=== PATIENT | female | born 1995 | race Caucasian/White ===

== ENCOUNTER 2016-11-18 18:30 | Emergency (ER) | payer OTHER ==
[2016-11-18 18:39] VITALS: BP 129/58; PULSE 75; TEMP 98.3; BMI 27.4
[2016-11-18] MEDS ORDERED: diazePAM 5 MG TABLET PO ONE (19:01)
[2016-11-18] MEDS ORDERED: KETOROLAC TROMETHAMINE 60 MG/2 ML VIAL IM ONE (19:01)
[2016-11-18] MEDS ORDERED: KETOROLAC TROMETHAMINE 60 MG/2 ML VIAL ONE (19:03)
[2016-11-18] MEDS ORDERED: diazePAM 5 MG TABLET ONE (19:03)
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
== END 2016-11-18 20:15 | disposition home or self-care (01) ==
LOC: JERFT 18:30
PROC: 3E0233Z Introduction of Anti-inflammatory into Muscle, Percutaneous Approach (ICD-10-PCS; principal; 2016-11-18)
DX: M54.5 Low back pain (principal); V49.49XA Driver injured in collision with other motor vehicles in traffic accident, initial encounter; Y92.414 Local residential or business street as the place of occurrence of the external cause; Y93.89 Activity, other specified
CPT/HCPCS: 99281-25

== ENCOUNTER 2016-11-27 22:51 | Emergency (ER) | payer OTHER ==
[2016-11-27 23:10] VITALS: BP 129/58; PULSE 101; TEMP 98.2; BMI 29.2
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
[2016-11-28] MEDS ORDERED: ALBUTEROL SO4 2.5/IPRATROPIUM 0.5 INH SOL 3 ML VIAL.NEB. NEB ONE (00:06)
[2016-11-28] MEDS ORDERED: METHOCARBAMOL 500 MG TABLET PO ONE (00:09)
[2016-11-28] MEDS ORDERED: OXYCODONE/APAP 5/325MG COMBO TABLET PO ONE (00:09)
[2016-11-28] MEDS ORDERED: OXYCODONE/APAP 5/325MG COMBO TABLET ONE (00:23)
[2016-11-28] MEDS ORDERED: METHOCARBAMOL 500 MG TABLET ONE (00:23)
[2016-11-28] MEDS ORDERED: LACTULOSE 20 GM/30 ML UDC (FOR ORAL USE ONLY) PO ONE (01:49)
[2016-11-28] MEDS ORDERED: LACTULOSE 20 GM/30 ML UDC (FOR ORAL USE ONLY) ONE (01:52)
== END 2016-11-28 01:50 | disposition home or self-care (01) ==
LOC: JER 22:51
DX: R07.89 Other chest pain (principal); V49.49XA Driver injured in collision with other motor vehicles in traffic accident, initial encounter; Y92.488 Other paved roadways as the place of occurrence of the external cause; Y93.89 Activity, other specified; Y99.9 Unspecified external cause status; J45.909 Unspecified asthma, uncomplicated; E28.2 Polycystic ovarian syndrome
CPT/HCPCS: 72100-TC; 84703; 99282-25

== ENCOUNTER 2023-12-10 21:54 | Emergency (ER) | payer OTHER ==
[2023-12-10 22:03] VITALS: BP 98/59; PULSE 91; RESP 18; TEMP 98.2; BMI 21.9
[2023-12-10] MEDS ORDERED: ACETAMINOPHEN 500 MG TABLET (FP) ONE (23:01)
[2023-12-10] MEDS: ACETAMINOPHEN 500 MG TABLET (FP) PO ONE (23:05)
== END 2023-12-10 23:33 | disposition home or self-care (01) ==
LOC: JER 21:54 → JERFT 21:54 → JER 23:33
DX: S92.425A Nondisplaced fracture of distal phalanx of left great toe, initial encounter for closed fracture (principal); W20.8XXA Other cause of strike by thrown, projected or falling object, initial encounter
CPT/HCPCS: 73630-TC-LT; 73660-TC-LT-FY; 99284-25